=== PATIENT | male | born 1980 | race Caucasian/White ===

== ENCOUNTER 2019-01-24 19:04 | Emergency (ER) | payer OTHER ==
[2019-01-24 19:18] VITALS: BP 134/89; PULSE 78; RESP 16; TEMP 98.8
[2019-01-24] MEDS ORDERED: DIPH,PERTUS(ACELL)TETVAC-LF 0.5 ML VIAL IM ONE (19:31)
[2019-01-24] MEDS ORDERED: WATER FOR IRRIG, STERILE 1,000 ML BTL IRRIGATION ONE (20:03)
[2019-01-24] MEDS ORDERED: ACETAMINOPHEN TAB 500 MG TAB PO STA (20:03)
--- NOTE | 2019-01-24 20:05 | ED ---
Head Injury HPI - General Chief complaint: Head Injury Stated complaint: head injury Time Seen by Provider: 01/24/19 19:20 Source: patient, family Mode of arrival: ambulatory Limitations: no limitations - History of Present Illness Initial comments: 38 year-old male patient presents to the emergency department today for evaluation of head injury and laceration to the left occipital scalp. Patient states about 2 hours ago he was taking down a chicken coop when a piece of the roof fell onto his head causing a laceration. He denies any loss of consciou sness with the injury. Patient states he currently has a mild headache. Denies any blurred vision, double vision, nausea, vomiting, dizziness, weakness, neck, or back pain. He denies any other injuries. Patient states he believes his last tetanus vaccine was 6 years ago. He denies any numbness or tingling to the extremities. Denies any chest pain, shortness of breath, abdominal pain, extremity pain, or other concerns. - Related Data Home Medications Medication Instructions Recorded Confirmed No Known Home Medications 01/24/19 01/24/19 Allergies/Adverse reactions: Allergies Allergy/AdvReac Type Severity Reaction Status Date / Time No Known Allergies Allergy Verified 01/24/19 19:56 Review of Systems ROS Statement: Those systems with pertinent positive or pertinent negative responses have been documented in the HPI. ROS Other: All systems not noted in ROS Statement are negative. Past Medical History Past Medical History: No Reported History History of Any Multi-Drug Resistant Organisms: None Reported Past Surgical History: No Surgical Hx Reported Past Psychological History: No Psychological Hx Reported Smoking Status: Former smoker Past Alcohol Use History: Daily Past Drug Use History: None Reported General Exam Limitations: no limitations General appearance: alert, in no apparent distress, other (This is a well developed, well nourished adult male patient in no acute distress. Vital signs upon presentation show temperature of 98.8 degrees farenheit, pulse 78, resp 16, BP 134/89, pulse ox 98% on room air. ) Head exam: Present: other (2 cm laceration noted to the left occipital scalp. No bony step-off or deformity noted to palpation around the site. No active bleeding.) Eye exam: Present: normal appearance, PERRL, EOMI. Absent: scleral icterus, conjunctival injection, periorbital swelling ENT exam: Present: normal exam, normal oropharynx, mucous membranes moist Neck exam: Present: normal inspection, full ROM, other (Patient has no deformity, step off, or pain to firm midline palpation of the posterior cervical spine. Full range of motion without pain or limitation. ). Absent: tenderness, meningismus, lymphadenopathy Respiratory exam: Present: normal lung sounds bilaterally. Absent: respiratory distress, wheezes, rales, rhonchi, stridor Cardiovascular Exam: Present: regular rate, normal rhythm, normal heart sounds. Absent: systolic murmur, diastolic murmur, rubs, gallop, clicks GI/Abdominal exam: Present: soft, normal bowel sounds. Absent: distended, tenderness, guarding, rebound, rigid Back exam: Present: normal inspection, other (Patient has no bony step off, deformity, or tenderness noted to firm midline palpation of the thoracic and lumbar spines. No pain or limitation with movement. ). Absent: vertebral tenderness Neurological exam: Present: alert, oriented X3, CN II-XII intact Psychiatric exam: Present: normal affect, normal mood Skin exam: Present: warm, dry, intact, normal color. Absent: rash Course Vital Signs 01/24/19 19:15 Temperature 98.8 F Pulse Rate 78 Respiratory 16 Rate Blood Pressure 134/89 O2 Sat by Pulse 98 Oximetry Medical Decision Making - Medical Decision Making 38-year-old male patient presented to the emergency department today for evaluation after sustaining a head injury. Physical examination did reveal a 2 cm laceration to the left occipital scalp. Patient is neurologically intact with no focal deficits. We did update his tetanus vaccination. I did insert 2 fredrick to the laceration. Given low mechanism of injury and intact neurological status CT scan is not recommended at this time. He is given Tylenol for pain control. He is instructed to follow-up with his primary care physician for recheck in 1-2 days. Return parameters were discussed in detail. He verbalizes understanding and agrees with this plan. Disposition Clinical Impression: Scalp laceration, Head injury Disposition: HOME SELF-CARE Condition: Good Instructions (If sedation given, give patient instructions): Laceration (ED), Head Injury (ED), Staple Care (ED) Additional Instructions: Keep wound clean and dry. You can shower. Do not submerge in water (Lakes, pools, ponds, bath, ocean). Take tylenol for pain relief. Return to the emergency department in 7 days to have ferdrick removed. Follow up with your primary care physician for recheck in 1-2 days. Return to the emergency department for any new, worsening, or concerning symptoms. Is patient prescribed a controlled substance at d/c from ED?: No Referrals: None,Stated [Primary Care Provider] - 1-2 days Time of Disposition: 20:05
== END 2019-01-24 20:22 | disposition home or self-care (01) ==
LOC: EC 19:04
DX: S01.01XA Laceration without foreign body of scalp, initial encounter (principal); Z87.891 Personal history of nicotine dependence; Z23 Encounter for immunization; W20.8XXA Other cause of strike by thrown, projected or falling object, initial encounter; Y93.89 Activity, other specified; Y92.009 Unspecified place in unspecified non-institutional (private) residence as the place of occurrence of the external cause
CPT/HCPCS: 12001; 90471; 90715; 99283

== ENCOUNTER 2019-05-27 15:52 | Inpatient (IN) | payer OTHER ==
[2019-05-27 16:20] VITALS: RESP 16
[2019-05-27] MEDS ORDERED: KETOROLAC 30 MG/ML 1 ML VIAL IVP STA (17:03)
[2019-05-27] MEDS ORDERED: PANTOPRAZOLE 40 MG/10 ML VIAL IVP STA (17:03)
[2019-05-27] MEDS ORDERED: SODIUM CHLORIDE 0.9% 1,000 ML IV STA ×3 (17:03→18:26)
[2019-05-27] MEDS ORDERED: ONDANSETRON 4 MG/2 ML VIAL IVP STA (17:03)
--- NOTE | 2019-05-27 17:04 | ED ---
Abdominal Pain HPI - General Chief Complaint: Abdominal Pain Stated Complaint: abdominal pain/vomiting Time Seen by Provider: 05/27/19 16:21 Source: patient, RN notes reviewed, old records reviewed Mode of arrival: ambulatory Limitations: no limitations - History of Present Illness Initial Comments: This is a 38-year-old male the ER for evaluation of persistent nausea and vomiting. Patient is diaphoretic currently in the hospital but states that was to the IV start. Patient denying any pain does smoke marijuana is no medical history takes no medications denies drug or alcohol abuse otherwise. has had episodes before they thought it may be his gallbladder had a three-day hospitalization with no acute findings. Patient states that nausea vomiting is been persistent no specific abdominal pain currently no diarrhea. No recent fevers travel history or known sick contacts, no family members with similar complaint MD Complaint: abdominal pain (0 current pain), other (Persistent nausea vomiting) Radiation: none Severity: mild Quality: cramping, aching Consistency: intermittent Improves With: nothing Worsens With: nothing Associated Symptoms: nausea, vomiting, diarrhea - Related Data Home Medications Medication Instructions Recorded Confirmed No Known Home Medications 01/24/19 05/27/19 Allergies Allergy/AdvReac Type Severity Reaction Status Date / Time No Known Allergies Allergy Verified 05/27/19 16:48 Review of Systems ROS Statement: Those systems with pertinent positive or pertinent negative responses have been documented in the HPI. ROS Other: All systems not noted in ROS Statement are negative. Past Medical History Past Medical History: No Reported History History of Any Multi-Drug Resistant Organisms: None Reported Past Surgical History: No Surgical Hx Reported Past Psychological History: No Psychological Hx Reported Smoking Status: Former smoker Past Alcohol Use History: Daily Past Drug Use History: None Reported General Exam Limitations: no limitations General appearance: alert, in no apparent distress Head exam: Present: atraumatic, normocephalic, normal inspection Eye exam: Present: normal appearance, PERRL, EOMI. Absent: scleral icterus, conjunctival injection, periorbital swelling ENT exam: Present: normal exam, mucous membranes moist Neck exam: Present: normal inspection. Absent: tenderness, meningismus, lymphadenopathy Respiratory exam: Present: normal lung sounds bilaterally. Absent: respiratory distress, wheezes, rales, rhonchi, stridor Cardiovascular Exam: Present: regular rate, normal rhythm, normal heart sounds. Absent: systolic murmur, diastolic murmur, rubs, gallop, clicks GI/Abdominal exam: Present: soft, normal bowel sounds. Absent: distended, tenderness, guarding, rebound, rigid Extremities exam: Present: normal inspection, full ROM, normal capillary refill. Absent: tenderness, pedal edema, joint swelling, calf tenderness Back exam: Present: normal inspection Neurological exam: Present: alert, oriented X3, CN II-XII intact Psychiatric exam: Present: normal affect, normal mood Skin exam: Present: warm, dry, intact, normal color. Absent: rash Course Vital Signs 05/27/19 05/27/19 16:19 18:46 Temperature 98.3 F Pulse Rate 87 70 Respiratory 16 16 Rate Blood Pressure 130/91 141/76 O2 Sat by Pulse 98 99 Oximetry - Reevaluation(s) Reevaluation #1: 05/27/19 17:22 Medical record reviewed Reevaluation #2: 05/27/19 17:22 Patient with near vasovagal event with IV start Reevaluation #3: 05/27/19 19:15 Patient informed of results - Consultations Consultation #1: Spoke with sound to his agreeable for admission Medical Decision Making - Medical Decision Making Plan I male positive pancreatitis with abdominal pain persistent nausea vomiting, will admit for trending of lipase, IV hydration and symptom management - Lab Data Result diagrams: 05/27/19 16:53 05/27/19 16:53 Lab Results 05/27/19 05/27/19 Range/Units 16:53 16:53 WBC 11.8 H (3.8-10.6) k/uL RBC 5.15 (4.30-5.90) m/uL Hgb 15.7 (13.0-17.5) gm/dL Hct 45.3 (39.0-53.0) % MCV 88.1 (80.0-100.0) fL MCH 30.6 (25.0-35.0) pg MCHC 34.7 (31.0-37.0) g/dL RDW 12.9 (11.5-15.5) % Plt Count 218 (150-450) k/uL Neutrophils % 84 % Lymphocytes % 13 % Monocytes % 3 % Eosinophils % 0 % Basophils % 0 % Neutrophils # 9.9 H (1.3-7.7) k/uL Lymphocytes # 1.5 (1.0-4.8) k/uL Monocytes # 0.3 (0-1.0) k/uL Eosinophils # 0.0 (0-0.7) k/uL Basophils # 0.0 (0-0.2) k/uL Sodium 137 (137-145) mmol/L Potassium 4.3 (3.5-5.1) mmol/L Chloride 101 (98-107) mmol/L Carbon Dioxide 27 (22-30) mmol/L Anion Gap 9 mmol/L BUN 14 (9-20) mg/dL Creatinine 0.66 (0.66-1.25) mg/dL Est GFR (CKD-EPI)AfAm >90 (>60 ml/min/1.73 sqM) Est GFR (CKD-EPI)NonAf >90 (>60 ml/min/1.73 sqM) Glucose 93 (74-99) mg/dL Calcium 9.5 (8.4-10.2) mg/dL Total Bilirubin 0.5 (0.2-1.3) mg/dL AST 22 (17-59) U/L ALT 22 (21-72) U/L Alkaline Phosphatase 75 (38-126) U/L Total Protein 7.3 (6.3-8.2) g/dL Albumin 4.4 (3.5-5.0) g/dL Amylase 164 H (30-110) U/L Lipase 1016 H (23-300) U/L Disposition Clinical Impression: Pancreatitis, Acute pancreatitis, Nausea and vomiting Disposition: ADMITTED IP TO THIS [facility] Condition: Good Is patient prescribed a controlled substance at d/c from ED?: No Referrals: None,Stated [Primary Care Provider] - 1-2 days
[2019-05-27 17:23] LABS: Basophils % (A) 0 %; Eosinophils % (A) 0 %; HCT 45.3 % (39.0-53.0); HGB 15.7 gm/dL (13.0-17.5); Lymphocytes # (A) 1.5 k/uL (1.0-4.8); Lymphocytes % (A) 13 %; MCH 30.6 pg (25.0-35.0); MCHC 34.7 g/dL (31.0-37.0); MCV 88.1 fL (80.0-100.0); Mean Platelet Volume 6.2; Monocytes # (A) 0.3 k/uL (0-1.0); Monocytes % (A) 3 %; Neutrophils # (A) 9.9 k/uL (1.3-7.7); Neutrophils % (A) 84 %; Platelet Count 218 k/uL (150-450); RBC 5.15 m/uL (4.30-5.90); RDW 12.9 % (11.5-15.5); WBC 11.8 k/uL (3.8-10.6)
[2019-05-27 17:33] LABS: ALT 22 U/L (21-72); AST 22 U/L (17-59); African American GFR (CKD) >90 (>60 ml/min/1.73 sqM); Albumin 4.4 g/dL (3.5-5.0); Alkaline Phosphatase 75 U/L (38-126); Amylase 164 U/L (30-110); Anion Gap 9 mmol/L; Blood Urea Nitrogen 14 mg/dL (9-20); Calcium 9.5 mg/dL (8.4-10.2); Carbon Dioxide 27 mmol/L (22-30); Chloride 101 mmol/L (98-107); Glucose 93 mg/dL (74-99); Potassium 4.3 mmol/L (3.5-5.1); Sodium 137 mmol/L (137-145); Total Bilirubin 0.5 mg/dL (0.2-1.3); Total Protein 7.3 g/dL (6.3-8.2)
[2019-05-27] MEDS ORDERED: SODIUM CHLORIDE 0.9% 1,000 ML IV ONE (19:14)
[2019-05-27] MEDS ORDERED: ONDANSETRON 4 MG/2 ML VIAL IVP PRN (19:15)
[2019-05-27] MEDS ORDERED: MORPHINE SULFATE 4 MG/ML SYRINGE IVP PRN (19:15)
--- NOTE | 2019-05-27 20:25 | US ---
EXAMINATION TYPE: US gallbladder DATE OF EXAM: 05/27/2019 COMPARISON: NONE CLINICAL HISTORY: pain. Epigastric pain x 3 days. Nausea, vomiting. EXAM MEASUREMENTS: Liver Length: 15.0 cm Gallbladder Wall: 0.29 cm CBD: 0.53 cm Right Kidney: 11.1 x 5.7 x 5.5 cm *Patient gassy. Pancreas: limited Liver: Heterogeneous hyperechoic Gallbladder: Three echogenic areas without posterior shadowing seen within the gallbladder and appea r to be attached to the gallbladder wall. Largest measures: 0.6 x 0.5 x 0.5 cm. Evidence for sonographic Yanez's sign: no CBD: appears wnl Right Kidney: No hydronephrosis or masses seen Pancreas is suboptimally seen on images saved. Heterogeneous hyperechoic appearance of the liver. Gal lbladder seen with nonmobile small hyperechoic foci favoring polyps. No mobile shadowing gallstones. No pericholecystic fluid. Gallbladder wall thickness upper limits of normal. Sonographic Yanez sign negative. IMPRESSION: No shadowing mobile gallstones or ultrasound evidence for acute cholecystitis.
[2019-05-27] MEDS ORDERED: IOPAMIDOL CONTRAST (ORAL USE) VIAL PO PRN (21:42)
--- NOTE | 2019-05-27 21:48 | P.HPIM ---
History of Present Illness H&P Date: 05/27/19 The patient is a 38 yo M with no known PMH, who presented to the ED w/ complaints of epigastric pain, nausea, and vomiting. The pain started on Monday morning, was epigastric, nonradiating, 2 out of 10, with associated nausea and the patient had no vomiting at that time. The patient went to work and continued about his day. The following day (Monday), the patient's pain somewhat worsened and he had nausea with 2-3 small amounts of NBNB vomiting. He had no associated hematemesis, diarrhea, fever, or chills. The symptoms continued into today when he had another 2 episodes of small amounts of NBNB vomiting with mild episodic, cramping, epigastric, non-radiating pain which resolved shortly after his vomiting. The patient however became concerned and came to the ED for further evaluation. He notes eating a rare steak on Monday night, and notes that it was rarer than what he usually eats. He denied any additional complaints. The patient reported no pain at the time of the interview and notes that he is hungry and wishes to eat a regular meal. The patient reports drinking alcohol socially (1-2x/week, a few beers). Denied any episodes of diarrhea, fever, chills, chest pain, SOB, or cough. He underwent an extensive evaluation in the ED w/ laboratory evaluation showing lipase 1016, amylase 164, w/ WBC count 11.8, AST 22, ALT 22, and T. bili 0.5. He was admitted to the medicine service for further management. Review of Systems Pertinent positives and negatives as discussed in HPI, a complete review of systems was performed and all other systems are negative. Past Medical History Past Medical History: No Reported History History of Any Multi-Drug Resistant Organisms: None Reported Past Surgical History: No Surgical Hx Reported Past Psychological History: No Psychological Hx Reported Smoking Status: Former smoker Past Alcohol Use History: Daily Past Drug Use History: None Reported Medications and Allergies Home Medications Medication Instructions Recorded Confirmed Type No Known Home Medications 01/24/19 05/27/19 History Allergies Allergy/AdvReac Type Severity Reaction Status Date / Time No Known Allergies Allergy Verified 05/27/19 16:48 Physical Exam Vitals: Vital Signs Temp Pulse Resp BP Pulse Ox 05/27/19 18:46 70 16 141/76 99 05/27/19 16:19 98.3 F 87 16 130/91 98 Intake and Output 05/27/19 05/27/19 05/27/19 06:59 14:59 22:59 Other: Weight 75.614 kg General: non toxic, no distress, appears at stated age, normal weight Derm: no unusual rashes/lesions no unusual ecchymoses, warm, dry Head: atraumatic, normocephalic, symmetric Eyes: EOMI, no lid lag, anicteric sclera, pupils equal round reactive to light ENT: Nose and ears atraumatic, no thrush, no pharyngeal erythema Neck: No thyromegaly, no cervical lymphadenopathy, trachea midline, supple Mouth: no lip lesion, mucus membranes moist Cardiovascular: S1S2 reg, no murmur, positive posterior tibial pulse bilateral, no edema, capillary refill less than 2 seconds Lungs: CTA bilateral, no rhonchi, no rales , no accessory muscle use Abdominal: soft, nontender to palpation, no guarding, no appreciable organomegaly, normal bowel sounds Ext: no gross muscle atrophy, muscle strength 5 out of 5 in all 4 extremities grossly, no contractures, Neuro: CN II-XI grossly intact, light touch intact all 4 extremities, finger to nose within normal limits, Psych: Alert, oriented, appropriate affect Results CBC & Chem 7: 05/27/19 16:53 05/27/19 16:53 Labs: Abnormal Lab Results - Last 24 Hours (Table) 05/27/19 05/27/19 Range/Units 16:53 16:53 WBC 11.8 H (3.8-10.6) k/uL Neutrophils # 9.9 H (1.3-7.7) k/uL Amylase 164 H (30-110) U/L Lipase 1016 H (23-300) U/L Assessment and Plan Plan: Abdominal pain, nausea, and vomiting, likely mild pancreatitis vs gastroenteritis -Will obtain CT abd w/ cont for definitive diagnosis since clinical presentation not consistent with pancreatitis -C/w diet as tolerated -Monitor lipase levels -C/w IVFs -Anti-emetics prn Leukocytosis -Likely secondary to acute stress -No signs of active infection at this time -Monitor CBC DVT prophylaxis -Lovenox The patient is admitted with an anticipated less than 2 midnight stay for evaluation of abdominal pain CODE STATUS: Full Code Discussed with: Patient Anticipated discharge date: 1-[address]: Home A total of 35 minutes was spent on the care of this complex patient more than 50% of the time was spent in counseling and care coordination.
--- NOTE | 2019-05-27 23:32 | CT ---
EXAMINATION TYPE: CT abdomen w con DATE OF EXAM: 05/27/2019 COMPARISON: None HISTORY: abdominal pain CT DLP: 414 mGycm Automated exposure control for dose reduction was used. TECHNIQUE: Helical acquisition of images was performed from the lung bases through the top of iliac crest to include entire abdomen. CONTRAST: Performed with Oral Contrast and with IV Contrast, patient injected with 100 mL of Isovue 300. FINDINGS: Lung bases are clear. There is no pleural effusion. Heart size is normal. Liver spleen pancreas appear normal. Bile ducts are not dilated. Gallbladder is contracted. There is no adrenal mass. Stomach appears normal. Kidneys show satisfactory contrast opacification. T here is no hydronephrosis. There is no retroperitoneal adenopathy. Ureters are not dilated. There is no evidence of a bowel obstruction. There is no mesenteric edema. There is no ascites or free air. Anel mbar spine is intact. I see no bony destructive process. IMPRESSION: NEGATIVE CT SCAN ABDOMEN. I DO NOT SEE A CAUSE FOR ABDOMINAL PAIN.
[2019-05-28 01:27] LABS: Cholesterol 162 mg/dL (<200); HDL Cholesterol 39 mg/dL (40-60); LDL Cholesterol,Calculated 108 mg/dL (0-99); Triglycerides 77 mg/dL (<150)
[2019-05-28 02:13] VITALS: BMI 23.2
[2019-05-28 04:50] VITALS: BP 113/73; PULSE 57; TEMP 97.7
[2019-05-28] MEDS ORDERED: PANTOPRAZOLE 40 MG/10 ML VIAL IVP SCH (09:00)
--- NOTE | 2019-05-28 10:27 | P.DS ---
Providers Date of admission: 05/27/19 19:14 Expected date of discharge: 05/28/19 Attending physician: Edita Vargas MD Primary care physician: Stated None Hospital Course: The patient is a 38 yo M with no known PMH, who presented to the ED w/ complaints of epigastric pain, nausea, and vomiting. The pain started on Monday morning, was epigastric, nonradiating, 2 out of 10, with associated nausea and the patient had no vomiting at that time. The patient went to work and continued about his day. The following day (Monday), the patient's pain somewhat worsened and he had nausea with 2-3 small amounts of NBNB vomiting. He had no associated hematemesis, diarrhea, fever, or chills. The symptoms continued into today when he had another 2 episodes of small amounts of NBNB vomiting with mild episodic, cramping, epigastric, non-radiating pain which resolved shortly after his vomiting. The patient however became concerned and came to the ED for further evaluation. He notes eating a rare steak on Monday night, and notes that it was rarer than what he usually eats. He denied any additional complaints. The patient reported no pain at the time of the interview and notes that he is hungry and wishes to eat a regular meal. The patient r eports drinking alcohol socially (1-2x/week, a few beers). Denied any episodes of diarrhea, fever, chills, chest pain, SOB, or cough. He underwent an extensive evaluation in the ED w/ laboratory evaluation showing lipase 1016, amylase 164, w/ WBC count 11.8, AST 22, ALT 22, and T. bili 0.5. He was admitted to the medicine service for further management. Today he reports that he is feeling much better and was able to tolerate dinner and this morning breakfast well without further worsening of his pain. Patient stated that pain is 0/10 in intensity since yesterday evening. He also stated that his nausea vomiting resolved after the first dose of medication given in the emergency room yesterday and since then he has no nausea/vomiting. Patient requested to be discharged home today so that he can follow up with his primary provider if needed. In review of patient's data it was noted that ultrasound of the abdomen was negative and CT abdomen and pelvis was also unremarkable for any pancreatic or gallbladder pathology. No significant abnormality was reported. Objective: Today patient's vitals are stable had one episode of slightly low heart rate at 57 without symptoms. Gen.alert, oriented 3, NAD. Lungsclear to auscultation, no wheezes/rhonchi/crackles heard. Heartrate rhythm regular, S1 and S2 positive. Abdomensoft, bowel sound positive, no tenderness detected. No guard ing/rigidity/rebound detected. Extremitiesperipheral pulses are positive, no edema detected. Assessment/plan: Abdominal pain, nausea, and vomiting, likely mild pancreatitis vs gastroenteritis -U/S abdomen and CT-Abd negative for any reported pathology. Patient is clinically much improved and resolved abdominal pain with toleration of oral diet. Patient was given diet counseling to avoid deep fried/fatty food and red meat containing high proteins for about a week and then progressively advanced as tolerated to regular diet. Patient verbalizes understanding, he will be discharged today as per his request and as he is clinically stable for discharge. Patient will be given omeprazole 40 mg daily for about 1 month, prescription was given. Patient will be sent to Dr. Miky Segovia to get established his care here and will be following up in one week with him. Assessment: See above. Pertinent Studies: Ultrasound abdomen and CT abdomen and pelvis. Procedures: None. Patient Condition at Discharge: Good Plan - Discharge Summary New Discharge Prescriptions: New Omeprazole 40 mg PO AC-BRKFST 30 Days #30 capsule. Discharge Medication List Omeprazole 40 mg PO AC-BRKFST 30 Days #30 capsule. 05/28/19 [Rx] Follow up Appointment(s)/Referral(s): Miky Segovia [STAFF PHYSICIAN] - 1 Week Patient Instructions/Handouts: Low Fat Diet (DC) Activity/Diet/Wound Care/Special Instructions: Avoid fatty and deep fried food and red meat for one week and then advance as tolerated to low fat diet. Discharge Disposition: HOME SELF-CARE
== END 2019-05-28 11:48 | disposition home or self-care (01) | DRG 391 ==
LOC: EC 15:52 → 4MS4W 19:14
PROVIDERS: ADMIT Internal Medicine; ATTEND Internal Medicine
DX: K52.9 Noninfective gastroenteritis and colitis, unspecified (principal); K85.90 Acute pancreatitis without necrosis or infection, unspecified; Z87.891 Personal history of nicotine dependence
CPT/HCPCS: 36415; 74160; 76705; 80053; 80061; 82150; 83690; 85025; 96361; 96374; 96375; 99285

== ENCOUNTER 2019-07-15 17:16 | Inpatient (IN) | payer OTHER ==
[2019-07-15] MEDS ORDERED: ONDANSETRON 4 MG/2 ML VIAL IVP STA (18:30)
[2019-07-15] MEDS ORDERED: SODIUM CHLORIDE 0.9% 1,000 ML IV STA ×3 (18:30→19:33)
[2019-07-15] MEDS ORDERED: MORPHINE SULFATE 4 MG/ML SYRINGE IV STA (18:30)
--- NOTE | 2019-07-15 18:40 | ED ---
Abdominal Pain HPI - General Chief Complaint: Abdominal Pain Stated Complaint: abdominal pain/vomiting Time Seen by Provider: 07/15/19 18:30 Source: patient, RN notes reviewed, old records reviewed Mode of arrival: ambulatory Limitations: no limitations - History of Present Illness Initial Comments: this is a 38-year-old miliary presents to for evaluation regarding severe abdominal pain and epigastric abdominal pain. History of pancreatitis feels lik e pancreatitis. Denies recent alcohol abuse. I'll nausea no vomiting just severe pain. No recent fevers. Does have follow-up with GI as this is his second or pancreatitis B is not ever seen his GI doctor yet. Symptoms began yesterday and a worsening MD Complaint: abdominal pain -: days(s) Location: epigastric Radiation: epigastric Migration to: epigastric Severity: severe Severity scale (1-10): 9 Quality: stabbing Consistency: constant Improves With: nothing Worsens With: nothing Associated Symptoms: nausea, vomiting - Related Data Previous Rx's Medication Instructions Recorded Omeprazole 40 mg PO AC-BRKFST 30 Days #30 05/28/19 capsule. Allergies Allergy/AdvReac Type Severity Reaction Status Date / Time No Known Allergies Allergy Verified 07/15/19 17:22 Review of Systems ROS Statement: Those systems with pertinent positive or pertinent negative responses have been documented in the HPI. ROS Other: All systems not noted in ROS Statement are negative. Past Medical History Past Medical History: No Reported History Additional Past Medical History / Comment(s): pancreatitis History of Any Multi-Drug Resistant Organisms: None Reported Past Surgical History: No Surgical Hx Reported Past Anesthesia/Blood Transfusion Reactions: No Reported Reaction Past Psychological History: No Psychological Hx Reported Smoking Status: Former smoker Past Alcohol Use History: Daily Past Drug Use History: Marijuana - Past Family History Mother History Unknown: Yes General Exam Limitations: no limitations General appearance: alert, in no apparent distress Head exam: Present: atraumatic, normocephalic, normal inspection Eye exam: Present: normal appearance, PERRL, EOMI. Absent: scleral icterus, conjunctival injection, periorbital swelling ENT exam: Present: normal exam, mucous membranes moist Neck exam: Present: normal inspection. Absent: tenderness, meningismus, lympha denopathy Respiratory exam: Present: normal lung sounds bilaterally. Absent: respiratory distress, wheezes, rales, rhonchi, stridor Cardiovascular Exam: Present: regular rate, normal rhythm, normal heart sounds. Absent: systolic murmur, diastolic murmur, rubs, gallop, clicks GI/Abdominal exam: Present: distended, tenderness, guarding, normal bowel sounds. Absent: rebound, rigid Extremities exam: Present: normal inspection, full ROM, normal capillary refill. Absent: tenderness, pedal edema, joint swelling, calf tenderness Back exam: Present: normal inspection Neurological exam: Present: alert, oriented X3, CN II-XII intact Psychiatric exam: Present: normal affect, normal mood Skin exam: Present: warm, dry, intact, normal color. Absent: rash Course Vital Signs 07/15/19 17:20 Temperature 97.6 F Pulse Rate 86 Respiratory 18 Rate Blood Pressure 132/88 O2 Sat by Pulse 99 Oximetry - Reevaluation(s) Reevaluation #1: 07/15/19 19:35 medical records reviewed with prior admission for pancreatitis Reevaluation #2: 07/15/19 19:35 patient has improved pain control currently - Consultations Consultation #1: spoke w Dr Vargas He was agreeable for admission Medical Decision Making - Medical Decision Making 38 male history of pancreatitis and here for abdominal pain with findings of positive pancreatitis here in the ER will admit for pain control nothing by mouth status and IV hydration - Lab Data Result diagrams: 07/15/19 18:40 07/15/19 18:40 Lab Results 07/15/19 07/15/19 Range/Units 18:40 18:40 WBC 12.1 H (3.8-10.6) k/uL RBC 5.76 (4.30-5.90) m/uL Hgb 17.2 (13.0-17.5) gm/dL Hct 51.1 (39.0-53.0) % MCV 88.7 (80.0-100.0) fL MCH 29.9 (25.0-35.0) pg MCHC 33.7 (31.0-37.0) g/dL RDW 12.9 (11.5-15.5) % Plt Count 218 (150-450) k/uL Neutrophils % 89 % Lymphocytes % 6 % Monocytes % 3 % Eosinophils % 1 % Basophils % 1 % Neutrophils # 10.8 H (1.3-7.7) k/uL Lymphocytes # 0.8 L (1.0-4.8) k/uL Monocytes # 0.3 (0-1.0) k/uL Eosinophils # 0.1 (0-0.7) k/uL Basophils # 0.1 (0-0.2) k/uL Sodium 138 (137-145) mmol/L Potassium 4.0 (3.5-5.1) mmol/L Chloride 102 (98-107) mmol/L Carbon Dioxide 24 (22-30) mmol/L Anion Gap 12 mmol/L BUN 14 (9-20) mg/dL Creatinine 0.62 L (0.66-1.25) mg/dL Est GFR (CKD-EPI)AfAm >90 (>60 ml/min/1.73 sqM) Est GFR (CKD-EPI)NonAf >90 (>60 ml/min/1.73 sqM) Glucose 111 H (74-99) mg/dL Calcium 9.2 (8.4-10.2) mg/dL Total Bilirubin 1.0 (0.2-1.3) mg/dL AST 28 (17-59) U/L ALT 16 (4-49) U/L Alkaline Phosphatase 93 (38-126) U/L Creatine Kinase 65 (55-170) U/L Total Protein 7.5 (6.3-8.2) g/dL Albumin 4.6 (3.5-5.0) g/dL Amylase 396 H* (30-110) U/L Lipase 2389 H (23-300) U/L Disposition Clinical Impression: Pancreatitis, Acute pancreatitis, Nausea and vomiting Disposition: ADMITTED IP TO THIS HOSP Condition: Fair Is patient prescribed a controlled substance at d/c from ED?: No Referrals: Kirk Moody DO [Primary Care Provider] - 1-2 days
[2019-07-15 18:57] LABS: Basophils # (A) 0.1 k/uL (0-0.2); Basophils % (A) 1 %; Eosinophils # (A) 0.1 k/uL (0-0.7); Eosinophils % (A) 1 %; HCT 51.1 % (39.0-53.0); HGB 17.2 gm/dL (13.0-17.5); Lymphocytes # (A) 0.8 k/uL (1.0-4.8); Lymphocytes % (A) 6 %; MCH 29.9 pg (25.0-35.0); MCHC 33.7 g/dL (31.0-37.0); MCV 88.7 fL (80.0-100.0); Mean Platelet Volume 7.7; Monocytes # (A) 0.3 k/uL (0-1.0); Monocytes % (A) 3 %; Neutrophils # (A) 10.8 k/uL (1.3-7.7); Neutrophils % (A) 89 %; Platelet Count 218 k/uL (150-450); RBC 5.76 m/uL (4.30-5.90); RDW 12.9 % (11.5-15.5); WBC 12.1 k/uL (3.8-10.6)
[2019-07-15 19:06] LABS: ALT 16 U/L (4-49); AST 28 U/L (17-59); African American GFR (CKD) >90 (>60 ml/min/1.73 sqM); Albumin 4.6 g/dL (3.5-5.0); Alkaline Phosphatase 93 U/L (38-126); Anion Gap 12 mmol/L; Blood Urea Nitrogen 14 mg/dL (9-20); Calcium 9.2 mg/dL (8.4-10.2); Carbon Dioxide 24 mmol/L (22-30); Chloride 102 mmol/L (98-107); Creatine Kinase 65 U/L (55-170); Glucose 111 mg/dL (74-99); Non-African American GFR(CKD) >90 (>60 ml/min/1.73 sqM); Sodium 138 mmol/L (137-145); Total Protein 7.5 g/dL (6.3-8.2)
[2019-07-15 19:17] LABS: Amylase 396 U/L (30-110)
[2019-07-15] MEDS ORDERED: SODIUM CHLORIDE 0.9% 500 ML 500 ML IV STA (19:33)
[2019-07-15] MEDS ORDERED: ONDANSETRON 4 MG/2 ML VIAL IVP PRN (19:33)
[2019-07-15] MEDS ORDERED: PANTOPRAZOLE 40 MG/10 ML VIAL IVP STA (19:33)
[2019-07-15] MEDS ORDERED: MORPHINE SULFATE 4 MG/ML SYRINGE IVP PRN (19:33)
[2019-07-16 07:57] VITALS: BP 135/79; PULSE 74; RESP 16; TEMP 98.5
[2019-07-16] MEDS ORDERED: PANTOPRAZOLE 40 MG/10 ML VIAL IVP SCH (09:00)
[2019-07-16] MEDS ORDERED: IPRATROPIUM-ALBUTEROL 3 ML NEB INHALATION PRN (10:32)
--- NOTE | 2019-07-16 11:31 | P.HPIM ---
History of Present Illness 38-year-old male came in with epigastric abdominal pain sharp in nature severe found to have pancreatitis. Patient admits to drinking alcohol for last 3 weeks and daily basis about 4 shots his face. Patient was a evaluated in the past for similar pancreatitis and alcoholic gastritis patient at the time was evaluated for gall stones although those are not evident. I had a lengthy discussion with the patient and patient doesn't agree that alcohol is making him have his pancreatitis. Patient will be started on diet liquid if he is able to tolerate the left advance to soft diet and if he is able to tolerate patient will be di scharged today on Prilosec for 14 days if he is not able to tolerate a patient need to stay in the hospital and need to be nothing by mouth. Same thing was discussed with the patient. But patient wanted to be discharged today no matter what the patient denied nausea vomiting. His abdominal pain is better now. Review of Systems REVIEW OF SYSTEMS: CONSTITUTIONAL: No fever, no malaise, no fatigue. HEENT: No recent visual problems or hearing problems. Denied any sore throat. CARDIOVASCULAR: No chest pain, orthopnea, PND, no palpitations, no syncope. PULMONARY: No shortness of breath, no cough, no hemoptysis. GASTROINTESTINAL: As mentioned in HPI NEUROLOGICAL: No headaches, no weakness, no numbness. HEMATOLOGICAL: Denies any bleeding or petechiae. GENITOURINARY: Denies any burning micturition, frequency, or urgency. MUSCULOSKELETAL/RHEUMATOLOGICAL: Denies any joint pain, swelling, or any muscle pain. ENDOCRINE: Denies any polyuria or polydipsia. The rest of the 14-point review of systems is negative. Past Medical History Past Medical History: No Reported History Additional Past Medical History / Comment(s): pancreatitis History of Any Multi-Drug Resistant Organisms: None Reported Past Surgical History: No Surgical Hx Reported Past Anesthesia/Blood Transfusion Reactions: No Reported Reaction Past Psychological History: No Psychological Hx Reported Smoking Status: Former smoker Past Alcohol Use History: Daily Past Drug Use History: Marijuana - Past Family History Mother History Unknown: Yes Medications and Allergies Home Medications Medication Instructions Recorded Confirmed Type Albuterol Inhaler [Ventolin Hfa 1 - 2 puff INHALATION Q6HR PRN #1 07/16/19 Rx Inhaler] inhaler Omeprazole [PriLOSEC] 40 mg PO ALFONSO #14 capsule. 07/16/19 Rx Allergies Allergy/AdvReac Type Severity Reaction Status Date / Time No Known Allergies Allergy Verified 07/15/19 19:50 Physical Exam Vitals: Vital Signs Temp Pulse Pulse Resp BP BP Pulse Ox 07/16/19 07:57 98.5 F 74 16 135/79 97 07/16/19 00:22 98.2 F 72 14 125/74 97 07/15/19 20:28 97.6 F 76 15 122/80 100 07/15/19 19:42 82 18 132/88 99 07/15/19 17:20 97.6 F 86 18 132/88 99 Intake and Output 07/15/19 07/16/19 07/16/19 22:59 06:59 14:59 Other: Voiding Method Toilet # Voids 1 1 Weight 72.575 kg PHYSICAL EXAMINATION: GENERAL: The patient is alert and oriented x3, not in any acute distress. Well developed, well nourished. HEENT: Pupils are round and equally reacting to light. EOMI. No scleral icterus. No conjunctival pallor. Normocephalic, atraumatic. No pharyngeal erythema. No thyromegaly. CARDIOVASCULAR: S1 and S2 present. No murmurs, rubs, or gallops. PULMONARY: Air entry bilateral lung connor but does have expiratory wheezing. ABDOMEN: Soft, nontender, nondistended, normoactive bowel sounds. No palpable organomegaly. MUSCULOSKELETAL: No joint swelling or deformity. EXTREMITIES: No cyanosis, clubbing, or pedal edema. NEUROLOGICAL: Gross neurological examination did not reveal any focal deficits. SKIN: No rashes. Results CBC & Chem 7: 07/15/19 18:40 07/15/19 18:40 Labs: Abnormal Lab Results - Last 24 Hours (Table) 07/15/19 07/15/19 Range/Units 18:40 18:40 WBC 12.1 H (3.8-10.6) k/uL Neutrophils # 10.8 H (1.3-7.7) k/uL Lymphocytes # 0.8 L (1.0-4.8) k/uL Creatinine 0.62 L (0.66-1.25) mg/dL Glucose 111 H (74-99) mg/dL Amylase 396 H* (30-110) U/L Lipase 2389 H (23-300) U/L Thrombosis Risk Factor Assmnt - Choose All That Apply Any of the Below Risk Factors Present?: No Other Risk Factors: No Other congenital or acquired thrombophilia - If yes, enter type in comment: No Thrombosis Risk Factor Assessment Level: Very Low Risk Assessment and Plan Plan: Pancreatitis, alcoholic pancreatitis: Continue with IV fluids. Patient will be started on diet as his symptoms are better we'll advance the diet if he is able to tolerate patient will be discharged today. -Possible COPD which was never diagnosed patient will benefit from pulmonary function testing will start him on breathing treatments and do not believe patient will need an inhaler systemic steroids at this time patient will be discharged on albuterol as well. -Alcohol abuse I believe patient does drink more alcohol than what he is admitting to, counseling regarding this was provided but patient doesn't believe alcohol is responsible for his pancreatitis -Alcoholic gastritis -Nicotine abuse: Counseling was provided -leukocytosis seconded pancreatitis.
== END 2019-07-16 13:18 | disposition home or self-care (01) | DRG 440 ==
LOC: EC 17:16 → 4SSUR 19:32
PROVIDERS: ADMIT Hospitalist; ATTEND Hospitalist
DX: K85.20 Alcohol induced acute pancreatitis without necrosis or infection (principal); F10.10 Alcohol abuse, uncomplicated; K29.20 Alcoholic gastritis without bleeding; Z87.891 Personal history of nicotine dependence; Z71.41 Alcohol abuse counseling and surveillance of alcoholic
CPT/HCPCS: 36415; 80053; 82150; 82550; 83690; 85025; 96361; 96374; 96375; 99285

== ENCOUNTER 2019-07-16 19:52 | Emergency (ER) | payer OTHER ==
--- NOTE | 2019-07-16 20:27 | ED ---
Abdominal Pain HPI - General Chief Complaint: Abdominal Pain Stated Complaint: pancreatitis Time Seen by Provider: 07/16/19 19:56 Source: patient, RN notes reviewed, old records reviewed Mode of arrival: ambulatory Limitations: no limitations - History of Present Illness Initial Comments: This is a 38-year-old male here for evaluation severe abdominal pain supinators feels like pancreatitis. Discharge today hospital. Patient states he's not have home medication. States hes had persistent abdominal patient did not feel well unable to take her medication secondary to vomiting is having increasing pain. Patient is for pain control no other changes MD Complaint: abdominal pain -: hour(s) Location: epigastric Radiation: epigastric Severity: severe Severity scale (1-10): 8 Quality: stabbing Consistency: constant Improves With: nothing Associated Symptoms: nausea, vomiting - Related Data Previous Rx's Medication Instructions Recorded Albuterol Inhaler [Ventolin Hfa 1 - 2 puff INHALATION Q6HR PRN #1 07/16/19 Inhaler] inhaler Omeprazole [PriLOSEC] 40 mg PO AC-BRKFST #14 capsule. 07/16/19 Allergies Allergy/AdvReac Type Severity Reaction Status Date / Time No Known Allergies Allergy Verified 07/15/19 19:50 Review of Systems ROS Statement: Those systems with pertinent positive or pertinent negative responses have been documented in the HPI. ROS Other: All systems not noted in ROS Statement are negative. Past Medical History Past Medical History: No Reported History Additional Past Medical History / Comment(s): pancreatitis History of Any Multi-Drug Resistant Organisms: None Reported Past Surgical History: No Surgical Hx Reported Past Anesthesia/Blood Transfusion Reactions: No Reported Reaction Past Psychological History: No Psychological Hx Reported Smoking Status: Former smoker Past Alcohol Use History: Daily Past Drug Use History: Marijuana - Past Family History Mother History Unknown: Yes General Exam Limitations: no limitations General appearance: alert, in no apparent distress Head exam: Present: atraumatic, normocephalic, normal inspection Eye exam: Present: normal appearance, PERRL, EOMI. Absent: scleral icterus, conjunctival injection, periorbital swelling ENT exam: Present: normal exam, mucous membranes moist Neck exam: Present: normal inspection. Absent: tenderness, meningismus, lymphadenopathy Respiratory exam: Present: normal lung sounds bilaterally. Absent: respiratory distress, wheezes, rales, rhonchi, stridor Cardiovascular Exam: Present: regular rate, normal rhythm, normal heart sounds. Absent: systolic murmur, diastolic murmur, rubs, gallop, clicks GI/Abdominal exam: Present: soft, normal bowel sounds. Absent: distended, tenderness, guarding, rebound, rigid Extremities exam: Present: normal inspection, full ROM, normal capillary refill. Absent: tenderness, pedal edema, joint swelling, calf tenderness Back exam: Present: normal inspection Neurological exam: Present: alert, oriented X3, CN II-XII intact Psychiatric exam: Present: normal affect, normal mood Skin exam: Present: warm, dry, intact, normal color. Absent: rash Course Vital Signs 07/16/19 07/16/19 07/16/19 20:08 20:09 21:09 Temperature 98.6 F 99.3 F 99.1 F Pulse Rate 65 61 66 Respiratory 17 17 18 Rate Blood Pressure 173/123 137/90 143/97 O2 Sat by Pulse 100 100 96 Oximetry 07/16/19 07/16/19 22:00 22:10 Temperature Pulse Rate 75 73 Respiratory 15 Rate Blood Pressure 136/101 144/73 O2 Sat by Pulse 98 Oximetry Medical Decision Making - Medical Decision Making Urinary male here with pancreatitis type symptoms recent pancreatitis diagnosed in hospital admission. Pain is controlled here in the ER decision is made for patient to be discharged home Disposition Clinical Impression: Abdominal pain, Pancreatitis, Nausea and vomiting Disposition: HOME SELF-CARE Instructions (If sedation given, give patient instructions): Pancreatitis (ED), Abdominal Pain (ED) Is patient prescribed a controlled substance at d/c from ED?: No Referrals: Kirk Moody DO [Primary Care Provider] - 1-2 days
[2019-07-16] MEDS ORDERED: ONDANSETRON ODT 4 MG TAB PO STA (20:36)
[2019-07-16] MEDS ORDERED: HYDROmorphone 1 MG/ML 1 ML SYRINGE IM STA (20:36)
[2019-07-16 21:16] VITALS: TEMP 99.1
[2019-07-16] MEDS ORDERED: ACET/COD 300 MG/30 MG STARTER PACK 6 TAB BTL PO STA (21:46)
[2019-07-16] MEDS ORDERED: ONDANSETRON 4 MG ODT STARTER PACK 2 TAB BTL PO STA (21:46)
[2019-07-16 22:06] VITALS: RESP 15
[2019-07-16 22:11] VITALS: BP 144/73; PULSE 73
== END 2019-07-16 22:15 | disposition home or self-care (01) ==
LOC: EC 19:52
DX: K85.90 Acute pancreatitis without necrosis or infection, unspecified (principal); Z87.891 Personal history of nicotine dependence
CPT/HCPCS: 99284; 96372; J1170; S0119